=== PATIENT | female | born 1935 | race American Indian/Alaskan Native ===

== ENCOUNTER 2017-07-19 11:56 | Inpatient (IN) | payer MEDICARE, OTHER ==
[2017-07-19 12:04] VITALS: BMI 28.1
[2017-07-19] MEDS ORDERED: Sodium Chloride 0.9% 1,000 ML IV ONE (12:36)
[2017-07-19] MEDS ORDERED: Sodium Chloride 0.9% 1,000 ML ONE (12:50)
[2017-07-19 12:54] LABS: BASO # 0.1 K/uL (0.0-0.2); EOS % 0.3 % (0.0-4.0); HEMOGLOBIN 8.9 g/dL (11.0-16.0); LYMPH # 1.6 K/uL (1.0-4.3); LYMPH % 20.2 % (20.0-40.0); MEAN CELL VOLUME 88.4 fL (81.0-99.0); MEAN CORPUSCULAR HGB CONC 32.8 g/dL (33.0-37.0); MEAN PLATELET VOLUME 7.9 fL (7.2-11.7); MONO # 0.6 K/uL (0.0-0.8); MONO % 7.5 % (0.0-10.0); NEUT # 5.6 K/uL (1.8-7.0); RBC 3.06 Mil/uL (3.80-5.20); RED CELL DISTRIBUTION WIDTH 14.3 % (11.5-14.5); WHITE BLOOD COUNT 7.8 K/uL (4.8-10.8)
[2017-07-19 13:04] LABS: INR 1.2
[2017-07-19 13:08] LABS: ALBUMIN 3.3 g/dL (3.5-5.0); CALCIUM 9.2 mg/dl (8.6-10.4)
--- NOTE | 2017-07-19 13:37 | C.PDOC ---
History Of Present Illness 81 year old female with a history of dm and dementia [facility] department for evaluation of a left foot infection prior to a possible scheduled AKA. Patient has no other medical complaints. Time Seen by Provider: 07/19/17 12:35 Chief Complaint (Nursing): Medical Clearance History Per: Patient History/Exam Limitations: no limitations Onset/Duration Of Symptoms: Hrs Current Symptoms Are (Timing): Still Present Past Medical History Reviewed: Historical Data, Nursing Documentation, Vital Signs Vital Signs: Last Vital Signs Temp 98.7 F 07/19/17 12:03 Pulse 67 07/19/17 12:03 Resp 20 07/19/17 12:03 BP 132/53 L 07/19/17 12:03 Pulse Ox 99 07/19/17 15:56 - Medical History PMH: Dementia, Fractures (left talus) Surgical History: Pacemaker Family History: States: Unknown Family Hx - Social History Hx Alcohol Use: No Hx Substance Use: No - Immunization History Hx Tetanus Toxoid Vaccination: No Hx Influenza Vaccination: No Hx Pneumococcal Vaccination: No Review Of Systems Constitutional: Negative for: Fever, Chills Cardiovascular: Negative for: Chest Pain Respiratory: Negative for: Cough, Shortness of Breath Musculoskeletal: Positive for: Leg Pain Skin: Positive for: Other (left foot infection) Physical Exam - Physical Exam Appears: Non-toxic, No Acute Distress Skin: Warm, Dry Head: Atraumatic, Normacephalic Eye(s): bilateral: Normal Inspection Nose: Normal Neck: Normal Chest: Symmetrical, Other (left chest wall pacemaker in place) Cardiovascular: Rhythm Regular, No Murmur Respiratory: Normal Breath Sounds, No Rales, No Rhonchi, No Wheezing Gastrointestinal/Abdominal: Soft, No Tenderness Extremity: Other (left foot transmetatarsal amputation, 6cm x 2cm ulceration present on the left heel) Neurological/Psych: Normal Speech, Other (alert, awake, at baseline confused. ) ED Course And Treatment - Laboratory Results Result Diagrams: 07/19/17 12:51 07/19/17 12:51 ECG: Interpreted By Me, Viewed By Me ECG Rhythm: Sinus Rhythm (62bpm, normal), ST/T Changes (abnormality) ECG Interpretation: Abnormal Interpretation Of ECG: Normal sinus rhythm at 62 bpm, anteroseptal infarct, age undetermined. ST/T wave abnormality, conisder inferolateral ischemia. Abnormal EKG. O2 Sat by Pulse Oximetry: 99 (RA) Pulse Ox Interpretation: Normal Progress Note: Plan: BBK Type and Screen. EKG. CMP. CBC. PTT. Prothrombin Time. CXR One View. Glucose POC. NaCl IV Fluids. Urinalysis Medical Decision Making Medical Decision Making: discussed with Dr Chahal; pt scheduled for left leg aka on friday; will admit to his service and give clindamycin Disposition Discussed With Dr.: Noman Chahal Doctor Will See Patient In The: Hospital - Disposition Disposition: HOSPITALIZED Disposition Time: 13:35 Condition: GOOD - Clinical Impression Clinical Impression: Diabetic infection of left foot - PA / HIGH LIFT OPERATOR / Resident Statement MD/DO has reviewed & agrees with the documentation as recorded. - Scribe Statement The provider has reviewed the documentation as recorded by the Scribe (Collin Simental) All medical record entries made by the Scribe were at my direction and personally dictated by me. I have reviewed the chart and agree that the record accurately reflects my personal performance of the history, physical exam, medical decision making, and the department course for this patient. I have also personally directed, reviewed, and agree with the discharge instructions and disposition.
[2017-07-19 13:58] LABS: SQUAMOUS EPITHIAL 1 /hpf (0-5); URINE BACTERIA RARE (<OCC); URINE BILIRUBIN NEGATIVE (NEGATIVE); URINE BLOOD NEGATIVE (NEGATIVE); URINE CLARITY Hazy (Clear); URINE COLOR Yellow (YELLOW); URINE GLUCOSE (UA) NORMAL (Normal); URINE LEUKOCYTE ESTERASE 3+ Leu/uL (Negative); URINE PROTEIN NEGATIVE (NEGATIVE); URINE UROBILINOGEN NORMAL mg/dL (0.2-1.0)
[2017-07-19] MEDS ORDERED: Clindamycin 300 MG in Sodium Chloride 0.9% 50 ML IVPB STA (14:35)
[2017-07-19] MEDS ORDERED: Home Med 1 UNIT (Acetaminophen [Tylenol] 650 MG) PO PRN (16:27)
--- NOTE | 2017-07-19 17:39 | CP.PCM.CON ---
History of Present Illness - History of Present Illness History of Present Illness: Surgery Consult: Dr. Núñez Pt is an 81F with PMHx significant for DM, HTN, HLD, arrhythmia & dementia who presents to with Left foot non healing wound. Pt is scheduled for AKA on Friday, however due to her extensive medical hx her primary wanted her optimized for OR. Currently, pt is resting comfortably in her bed and denies any complaints. She denies pain in her foot, denies N/V, F/C, chest pain or SOB. PMHx: DM, HTN, HLD, arrhythmia & dementia PSHx: Left foot TMA, pacemaker SocialHx: denies smoking/EtOH ALL: Penicillins Review of Systems - Review of Systems All systems: reviewed and no additional remarkable complaints except (as per HPI ) Past Patient History - Past Social History Smoking Status: Never Smoked Drugs: Denies - CARDIAC Hx Hypertension: Yes Hx Pacemaker: Yes - NEUROLOGICAL Hx Dementia: Yes - ENDOCRINE/METABOLIC Hx Endocrine Disorders: Yes Hx Diabetes Mellitus Type 2: Yes - MUSCULOSKELETAL/RHEUMATOLOGICAL Hx Fractures: Yes (left talus) - PSYCHIATRIC Hx Substance Use: No - SURGICAL HISTORY Hx Surgeries: Yes Other/Comment: Pacemaker, left TMA - ANESTHESIA Hx Anesthesia: Yes Hx Anesthesia Reactions: No Meds Allergies/Adverse Reactions: Allergies Allergy/AdvReac Type Severity Reaction Status Date / Time Penicillins Allergy Verified 07/19/17 12:03 - Medications Medications: Current Medications Acetaminophen (Tylenol 325mg Tab) 650 mg PO Q6 PRN PRN Reason: Fever >100.4 F Amlodipine Besylate (Norvasc) 10 mg PO DAILY [facility] Ascorbic Acid (Vitamin C 500 Mg Tab) 500 mg PO DAILY [facility] Donepezil HCl (Aricept) 5 mg PO HS [facility] Ferrous Gluconate (Fergon) 324 mg PO DAILY [facility] Furosemide (Lasix) 20 mg PO DAILY [facility] Heparin Sodium (Porcine) (Heparin) 5,000 units SC Q12 [facility] Home Med (Fenofibrate,Micronized [Fenofibrate]) 134 mg PO DAILY [facility] Hydralazine HCl (Apresoline) 100 mg PO Q8 [facility] Sodium Chloride (Sodium Chloride 0.9%) 1,000 mls @ 100 mls/hr IV .Q10H ONE Stop: 07/19/17 22:35 Last Admin: 07/19/17 12:54 Dose: 100 mls/hr Sodium Chloride (Sodium Chloride 0.45%) 1,000 mls @ 60 mls/hr IV .[id number] [facility] Clindamycin Phosphate 300 mg/ (Sodium Chloride) 52 mls @ 104 mls/hr IVPB Q8 [facility] PRN Reason: Protocol Insulin Human Regular (Novolin R) 0 unit SC ACHS [facility] PRN Reason: Protocol Losartan Potassium (Cozaar) 100 mg PO DAILY [facility] Memantine (Namenda) 10 mg PO DAILY [facility] Metoprolol Succinate (Toprol Xl) 50 mg PO Q12 [facility] Multivitamins (Hexavitamin) 1 tab PO DAILY [facility] Rosuvastatin Calcium (Crestor) 5 mg PO HS [facility] Physical Exam - Constitutional Appears: Well, No Acute Distress - Head Exam Head Exam: ATRAUMATIC, NORMOCEPHALIC - Eye Exam Eye Exam: Normal appearance - ENT Exam ENT Exam: Mucous Membranes Moist - Respiratory Exam Respiratory Exam: NORMAL BREATHING PATTERN - Cardiovascular Exam Cardiovascular Exam: RRR - GI/Abdominal Exam GI & Abdominal Exam: Soft. absent: Tenderness - Extremities Exam Additional comments: left foot with dressing, clean/dry/intact - Neurological Exam Neurological exam: Alert - Skin Skin Exam: Dry, Warm Results - Vital Signs Recent Vital Signs: Last Vital Signs Temp 97.5 F L 07/19/17 16:56 Pulse 64 07/19/17 16:56 Resp 18 07/19/17 16:56 BP 144/61 07/19/17 16:56 Pulse Ox 100 07/19/17 16:56 - Labs Result Diagrams: 07/19/17 12:51 07/19/17 12:51 Labs: Laboratory Results - last 24 hr 07/19/17 07/19/17 07/19/17 12:22 12:51 12:51 WBC 7.8 RBC 3.06 L Hgb 8.9 L Hct 27.1 L MCV 88.4 MCH 29.0 MCHC 32.8 L RDW 14.3 Plt Count 481 H MPV 7.9 Neut % (Auto) 71.0 Lymph % (Auto) 20.2 [place] % (Auto) 7.5 Eos % (Auto) 0.3 Baso % (Auto) 1.0 Neut # (Auto) 5.6 Lymph # (Auto) 1.6 [place] # (Auto) 0.6 Eos # (Auto) 0.0 Baso # (Auto) 0.1 PT 13.0 H INR 1.2 APTT 33 Sodium Potassium Chloride Carbon Dioxide Anion Gap BUN Creatinine Est GFR ( Amer) Est GFR (Non-Af Amer) POC Glucose (mg/dL) 250 H Random Glucose Calcium Total Bilirubin AST ALT Alkaline Phosphatase Total Protein Albumin Globulin Albumin/Globulin Ratio Urine Color Urine Clarity Urine pH Ur Specific [place] Urine Protein Urine Glucose (UA) Urine Ketones Urine Blood Urine Nitrate Urine Bilirubin Urine Urobilinogen Ur Leukocyte Esterase Urine WBC (Auto) Urine RBC (Auto) Ur Squamous Epith Cells Urine Bacteria Blood Type Antibody Screen 07/19/17 07/19/17 07/19/17 12:51 13:47 14:07 WBC RBC Hgb Hct MCV MCH MCHC RDW Plt Count MPV Neut % (Auto) Lymph % (Auto) [place] % (Auto) Eos % (Auto) Baso % (Auto) Neut # (Auto) Lymph # (Auto) [place] # (Auto) Eos # (Auto) Baso # (Auto) PT INR APTT Sodium 140 Potassium 4.7 Chloride 104 Carbon Dioxide 25 Anion Gap 15 BUN 28 H Creatinine 1.3 H Est GFR ( Amer) 47 Est GFR (Non-Af Amer) 39 POC Glucose (mg/dL) Random Glucose 219 H Calcium 9.2 Total Bilirubin 0.4 AST 42 H ALT 18 Alkaline Phosphatase 86 Total Protein 6.8 Albumin 3.3 L Globulin 3.4 Albumin/Globulin Ratio 1.0 Urine Color Yellow Urine Clarity Hazy Urine pH 6.0 Ur Specific [place] 1.011 Urine Protein Negative Urine Glucose (UA) Normal Urine Ketones Negative Urine Blood Negative Urine Nitrate Negative Urine Bilirubin Negative Urine Urobilinogen Normal Ur Leukocyte Esterase 3+ H Urine WBC (Auto) 17 H Urine RBC (Auto) 1 Ur Squamous Epith Cells 1 Urine Bacteria Rare Blood Type A POSITIVE Antibody Screen Negative Assessment & Plan - Assessment and Plan (Free Text) Assessment: 81F with PVD & non healing left foot wound Plan: - OR for Left AKA on Friday - Pt has been seen by cardio as outpt & cleared for surgery - [facility] for OR, pre-op Sun - d/w Dr. Wilton Perez, PGY-3
[2017-07-19] MEDS: Sodium Chloride 0.45% 1,000 ML IV SCH (18:42)
--- NOTE | 2017-07-19 19:00 | RAD ---
PROCEDURE: CHEST RADIOGRAPH, 1 VIEW HISTORY: Pre Op COMPARISON: No prior similar study for comparison. FINDINGS: LUNGS: There is a thin wall round lesion in the right lower lung may represent large bulla. If clinically warranted further assessment by CT may be obtained. Otherwise the lungs are clear. PLEURA: No pneumothorax or pleural fluid seen. CARDIOVASCULAR: The heart is normal in size. Left-sided pacemaker is seen place OSSEOUS STRUCTURES: No significant abnormalities. VISUALIZED UPPER ABDOMEN: Normal. OTHER FINDINGS: None. IMPRESSION: Thin wall round lesion at the right lower lung. If indicated further assessment by CT may be obtained.
[2017-07-19] MEDS: (Novolin R) Insulin Human Regular 100 units/ml vial SC SCH (21:35)
[2017-07-19] MEDS ORDERED: SIMVASTATIN 20 MG PO SCH (22:00)
[2017-07-19] MEDS: Clindamycin 300 MG in Sodium Chloride 0.9% 50 ML IVPB SCH (22:28)
[2017-07-19] MEDS: Metoprolol Succinate 50 mg XL Tab PO SCH (22:32)
--- NOTE | 2017-07-20 02:49 | HP ---
HISTORY OF PRESENT ILLNESS: The patient is an 81-year-old female with a history of chronic ulcer of the left foot, CAD, dementia, and Alzheimer. The [facility] was a [facility] resident. The patient was transported to the hospital for preparation of a procedure, AKA, by Dr. Núñez. In fact, the patient has an ulcer for many years that was not healed, no sign of healing. The patient went to a vascular center at [place] and showed very poor vascular condition. Also, the patient had seen an outpatient vascular surgeon, Dr. Núñez, who has recommended amputation. As the patient was in the [facility], she has a cardiology clearance with Dr. Maude Kendall and followed by cardiac catheterization. The patient was cleared by the adult crossing guard for the AKA. The patient was then referred to the hospital. ALLERGIES: THE PATIENT IS ALLERGIC TO PENICILLIN. PAST MEDICAL HISTORY: History of Alzheimer, diabetes, hypertension, peripheral vascular disease. 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 SOCIAL HISTORY: The patient is not living in the [facility]. FAMILY HISTORY: None. REVIEW OF SYSTEMS: The patient cannot give much information; however, the patient is not any respiratory distress, and the patient is calm. PHYSICAL EXAMINATION: GENERAL: The patient is alert and awake, responding to simple questions. VITAL SIGNS: Blood pressure 144/61, pulse 64, respirations 18, temperature 97.5. HEENT: Head is normocephalic. Mouth: Multiple teeth loss. NECK: Supple. LUNGS: Clear. HEART: Regular rate and rhythm. S1 and S2 present and positive murmur. CHEST: Has a pacemaker at the side of the chest wall. ABDOMEN: Soft. Positive bowel sounds. GENITALIA: There is a large prolapse of the uterus known for many years. EXTREMITIES: There is an ulcer of the left foot with chronic changes, the pulse is very faint. ASSESSMENT AND PLAN: The patient is admitted with diagnosis of chronic ulcer of the left foot and advanced peripheral vascular disease and has also diabetes, hypertension, and Alzheimer's. The patient also has arrhythmia. The patient has a consult with Dr. Núñez and also a consult with Dr. Shelly Dr. . The case was discussed and reviewed with Mayte Medley, the nurse practitioner. Noman Chahal MD [facility] # [id number]
[2017-07-20] MEDS: Clindamycin 300 MG in Sodium Chloride 0.9% 50 ML IVPB SCH ×3 (05:52→22:03)
[2017-07-20] MEDS: (Novolin R) Insulin Human Regular 100 units/ml vial SC SCH ×4 (07:56→22:17)
--- NOTE | 2017-07-20 08:47 | CP.PCM.PN ---
Subjective - Date & Time of Evaluation Date of Evaluation: 07/20/17 Time of Evaluation: 08:44 - Subjective Subjective: Surgery: Dr. Núñez Pt seen and examined. No acute overnight events. States she feels ok and denies pain at this time. No fevers recorded overnight. Objective - Vital Signs/Intake and Output Vital Signs (last 24 hours): Temp Pulse Resp BP Pulse Ox 99 F 65 20 146/58 L 98 07/19/17 23:35 07/20/17 05:50 07/19/17 23:35 07/20/17 05:50 07/19/17 23:35 Intake and Output: 07/20/17 07/20/17 06:59 18:59 Intake Total 540 Balance 540 - Medications Medications: Current Medications Acetaminophen (Tylenol 325mg Tab) 650 mg PO Q6 PRN PRN Reason: Fever >100.4 F Amlodipine Besylate (Norvasc) 10 mg PO DAILY [facility] Ascorbic Acid (Vitamin C 500 Mg Tab) 500 mg PO DAILY [facility] Donepezil HCl (Aricept) 5 mg PO HS [facility] Last Admin: 07/19/17 22:28 Dose: 5 mg Ferrous Gluconate (Fergon) 324 mg PO DAILY [facility] Furosemide (Lasix) 20 mg PO DAILY [facility] Heparin Sodium (Porcine) (Heparin) 5,000 units SC Q12 [facility] Last Admin: 07/19/17 22:28 Dose: 5,000 units Home Med (Fenofibrate,Micronized [Fenofibrate]) 134 mg PO DAILY [facility] Hydralazine HCl (Apresoline) 100 mg PO Q8 [facility] Last Admin: 07/20/17 05:52 Dose: 100 mg Sodium Chloride (Sodium Chloride 0.45%) 1,000 mls @ 60 mls/hr IV .[id number] [facility] Last Admin: 07/19/17 18:42 Dose: 60 mls/hr Clindamycin Phosphate 300 mg/ (Sodium Chloride) 52 mls @ 104 mls/hr IVPB Q8 [facility] PRN Reason: Protocol Last Admin: 07/20/17 05:52 Dose: 104 mls/hr Insulin Human Regular (Novolin R) 0 unit SC ACHS [facility] PRN Reason: Protocol Last Admin: 07/20/17 07:56 Dose: Not Given Losartan Potassium (Cozaar) 100 mg PO DAILY [facility] Memantine (Namenda) 10 mg PO DAILY [facility] Metoprolol Succinate (Toprol Xl) 50 mg PO Q12 [facility] Last Admin: 07/19/17 22:32 Dose: 50 mg Multivitamins (Hexavitamin) 1 tab PO DAILY [facility] Rosuvastatin Calcium (Crestor) 5 mg PO HS [facility] Last Admin: 07/19/17 22:28 Dose: 5 mg - Labs Labs: 07/19/17 12:51 07/19/17 12:51 PT 13.0 SECONDS (9.7-12.2) H 07/19/17 12:51 INR 1.2 07/19/17 12:51 APTT 33 SECONDS (21-34) 07/19/17 12:51 - Constitutional Appears: Well, No Acute Distress - Head Exam Head Exam: ATRAUMATIC, NORMOCEPHALIC - Eye Exam Eye Exam: Normal appearance - ENT Exam ENT Exam: Mucous Membranes Moist - Respiratory Exam Respiratory Exam: NORMAL BREATHING PATTERN - Cardiovascular Exam Cardiovascular Exam: RRR - GI/Abdominal Exam GI & Abdominal Exam: Soft. absent: Tenderness - Extremities Exam Additional comments: L foot with necrotic wound, no active drainage - Neurological Exam Neurological Exam: Alert, Awake - Skin Skin Exam: Dry, Warm Assessment and Plan - Assessment and Plan (Free Text) Assessment: 81F with PVD and non healing left foot wound Plan: - plan for AKA tomorrow - keep pt NPO past midnight - d/w Dr. Wilton Perez, PGY-3
[2017-07-20] MEDS ORDERED: Home Med 1 UNIT (Fenofibrate,Micronized [Fenofibrate] 134 MG) PO SCH (10:00)
[2017-07-20] MEDS ORDERED: FERROUS GLUCONATE 324 MG PO SCH (10:00)
[2017-07-20] MEDS ORDERED: Home Med 1 UNIT (Multivit,Iron,Min 5/Folic Acid [Strovite Forte Caplet] 1 TAB) PO SCH (10:00)
[2017-07-20] MEDS ORDERED: VALSARTAN 160 MG PO SCH (10:00)
[2017-07-20] MEDS: Metoprolol Succinate 50 mg XL Tab PO SCH ×3 (10:31→22:16)
[2017-07-20] MEDS: Multiple Vitamins Tab PO SCH (10:31)
[2017-07-20 12:05] LABS: BASO # 0.1 K/uL (0.0-0.2); BASO % 0.9 % (0.0-2.0); EOS # 0.1 K/uL (0.0-0.7); EOS % 0.9 % (0.0-4.0); HEMOGLOBIN 8.4 g/dL (11.0-16.0); LYMPH # 1.9 K/uL (1.0-4.3); LYMPH % 30.5 % (20.0-40.0); MEAN CELL VOLUME 88.2 fL (81.0-99.0); MEAN CORPUSCULAR HEMOGLOBIN 29.3 pg (27.0-31.0); MEAN CORPUSCULAR HGB CONC 33.3 g/dL (33.0-37.0); MEAN PLATELET VOLUME 7.8 fL (7.2-11.7); MONO # 0.5 K/uL (0.0-0.8); MONO % 7.9 % (0.0-10.0); NEUT # 3.7 K/uL (1.8-7.0); NEUT % 59.8 % (50.0-75.0); NRBC % 0.1 % (0.0-2.0); RBC 2.86 Mil/uL (3.80-5.20); RED CELL DISTRIBUTION WIDTH 14.3 % (11.5-14.5); WHITE BLOOD COUNT 6.3 K/uL (4.8-10.8)
[2017-07-20 12:22] LABS: CALCIUM 9.2 mg/dl (8.6-10.4)
--- NOTE | 2017-07-21 01:50 | PN ---
DATE: 07/20/2017 SUBJECTIVE: Today, the patient is alert and awake, resting comfortably. Denies any chest pain. Denies any shortness of breath. PHYSICAL EXAMINATION: GENERAL: No apparent distress. VITAL SIGNS: The patient has a blood pressure of 160/69, pulse is 60, respirations 20, and temperature 98.2. HEENT: Head is normocephalic. Mouth has lot of tooth loss.. NECK: Supple. No JVD. LUNGS: Clear. HEART: Regular rate and rhythm. Positive murmur. ABDOMEN: Soft and nontender. There is prolapse of the uterus.. EXTREMITIES: There is an ulcer in the left foot and very poor peripheral vascular disease in the left leg. LABORATORY DATA: Blood test done today showed WBC 6.3, hemoglobin 8.4, hematocrit 25.2, and platelet 417. Chemistries: Sodium 144, potassium 4.2, chloride 107, bicarb 28, BUN 18, creatinine 1.1, glucose 165, and calcium 9.2. PT is 13, INR 1.2 and PTT is 33. ASSESSMENT AND PLAN: The patient is scheduled for amputation tomorrow and was cleared by barrel rifler broach for the surgery and receive one pack RBC in case of loss of blood and it seems that the patient has a low hemoglobin already. Noman Chahal MD
[2017-07-21] MEDS: Clindamycin 300 MG in Sodium Chloride 0.9% 50 ML IVPB SCH ×3 (05:37→22:32)
[2017-07-21] MEDS: Sodium Chloride 0.45% 1,000 ML IV SCH ×3 (05:40→19:45)
[2017-07-21 07:27] LABS: CALCIUM 9.1 mg/dl (8.6-10.4)
[2017-07-21 07:30] LABS: BASO % 0.5 % (0.0-2.0); EOS # 0.1 K/uL (0.0-0.7); EOS % 1.2 % (0.0-4.0); HEMOGLOBIN 8.6 g/dL (11.0-16.0); LYMPH # 2.2 K/uL (1.0-4.3); LYMPH % 39.1 % (20.0-40.0); MEAN CELL VOLUME 88.3 fL (81.0-99.0); MEAN CORPUSCULAR HEMOGLOBIN 28.8 pg (27.0-31.0); MEAN CORPUSCULAR HGB CONC 32.7 g/dL (33.0-37.0); MEAN PLATELET VOLUME 7.9 fL (7.2-11.7); MONO # 0.4 K/uL (0.0-0.8); NEUT # 2.9 K/uL (1.8-7.0); NEUT % 52.2 % (50.0-75.0); NRBC % 0.2 % (0.0-2.0); RBC 2.99 Mil/uL (3.80-5.20); RED CELL DISTRIBUTION WIDTH 14.8 % (11.5-14.5); WHITE BLOOD COUNT 5.6 K/uL (4.8-10.8)
[2017-07-21] MEDS: (Novolin R) Insulin Human Regular 100 units/ml vial SC SCH ×4 (07:31→21:45)
[2017-07-21] MEDS ORDERED: Lactated Ringer's 1,000 ML IV ONE ×2 (08:15→10:30)
--- NOTE | 2017-07-21 09:31 | PCM.SURG1 ---
Surgeon's Initial Post Op Note - Surgeon's Notes Surgeon: Wilton Machine Tender: SANDRA TrotterY2. June, RL Pre-Operative Diagnosis: Non healing left lower extremity wound Operative Findings: stent Post-Operative Diagnosis: same Operation Performed: Left above knee amputation Specimen/Specimens Removed: left lower leg above the knee Estimated Blood Loss: EBL {In ML}: 300 Date of Surgery/Procedure: 07/21/17 Time of Surgery/Procedure: 08:30
[2017-07-21] MEDS ORDERED: Lactated Ringer's 1,000 ML IV SCH (09:45)
[2017-07-21] MEDS ORDERED: Pneumococcal 23-Valent Vaccine IM ONE (10:00)
[2017-07-21] MEDS: HYDROmorphone 0.5 mg/0.5 ml ISec IVP PRN ×3 (10:24→18:14)
[2017-07-21] MEDS ORDERED: HYDROmorphone 0.5 mg/0.5 ml ISec ONE (10:44)
[2017-07-21] MEDS: Multiple Vitamins Tab PO SCH (11:47)
[2017-07-21] MEDS: Metoprolol Succinate 50 mg XL Tab PO SCH ×2 (11:49→21:56)
[2017-07-22] MEDS: HYDROmorphone 0.5 mg/0.5 ml ISec IVP PRN (02:32)
[2017-07-22] MEDS: Clindamycin 300 MG in Sodium Chloride 0.9% 50 ML IVPB SCH ×3 (06:30→21:52)
[2017-07-22 09:24] LABS: BASO % 0.3 % (0.0-2.0); LYMPH # 1.4 K/uL (1.0-4.3); MONO # 0.9 K/uL (0.0-0.8); MONO % 12.5 % (0.0-10.0); NEUT # 4.7 K/uL (1.8-7.0)
[2017-07-22 09:30] LABS: EOS % 0.1 % (0.0-4.0); LYMPH % 19.9 % (20.0-40.0); MEAN CELL VOLUME 88.4 fL (81.0-99.0); MEAN CORPUSCULAR HEMOGLOBIN 29.2 pg (27.0-31.0); NEUT % 67.2 % (50.0-75.0); RBC 2.09 Mil/uL (3.80-5.20); RED CELL DISTRIBUTION WIDTH 14.4 % (11.5-14.5); WHITE BLOOD COUNT 6.9 K/uL (4.8-10.8)
[2017-07-22 09:38] LABS: HEMOGLOBIN 6.1 g/dL (11.0-16.0)
[2017-07-22 09:54] LABS: CALCIUM 8.5 mg/dl (8.6-10.4)
[2017-07-22] MEDS: Multiple Vitamins Tab PO SCH (10:40)
[2017-07-22] MEDS: Metoprolol Succinate 50 mg XL Tab PO SCH ×2 (10:40→21:54)
[2017-07-22 13:30] LABS: MEAN CELL VOLUME 87.5 fL (81.0-99.0); MEAN CORPUSCULAR HEMOGLOBIN 29.4 pg (27.0-31.0); MEAN CORPUSCULAR HGB CONC 33.6 g/dL (33.0-37.0); MEAN PLATELET VOLUME 7.5 fL (7.2-11.7); RBC 2.09 Mil/uL (3.80-5.20); RED CELL DISTRIBUTION WIDTH 14.7 % (11.5-14.5); WHITE BLOOD COUNT 6.8 K/uL (4.8-10.8)
[2017-07-22] MEDS: (Novolin R) Insulin Human Regular 100 units/ml vial SC SCH ×4 (13:37→22:17)
[2017-07-22 13:38] LABS: HEMOGLOBIN 6.1 g/dL (11.0-16.0)
--- NOTE | 2017-07-22 13:49 | CP.PCM.PN ---
Subjective - Date & Time of Evaluation Date of Evaluation: 07/22/17 Time of Evaluation: 13:47 - Subjective Subjective: SURGERY NOTE FOR DR. MARISCAL 81F seen and examined at bedside. Patient resting comfortably in bed. No acute events. Objective - Vital Signs/Intake and Output Vital Signs (last 24 hours): Temp Pulse Resp BP Pulse Ox 98.3 F 66 18 107/55 L 95 07/22/17 07:30 07/22/17 07:30 07/22/17 07:30 07/22/17 10:38 07/22/17 07:30 Intake and Output: 07/22/17 07/22/17 06:59 18:59 Intake Total 1280 Balance 1280 - Medications Medications: Current Medications Acetaminophen (Tylenol 325mg Tab) 650 mg PO Q6 PRN PRN Reason: Fever >100.4 F Amlodipine Besylate (Norvasc) 10 mg PO DAILY [facility] Last Admin: 07/21/17 11:49 Dose: Not Given Ascorbic Acid (Vitamin C 500 Mg Tab) 500 mg PO DAILY [facility] Last Admin: 07/22/17 10:38 Dose: 500 mg Donepezil HCl (Aricept) 5 mg PO HS [facility] Last Admin: 07/21/17 21:47 Dose: 5 mg Ferrous Gluconate (Fergon) 324 mg PO DAILY [facility] Last Admin: 07/22/17 10:38 Dose: 324 mg Furosemide (Lasix) 20 mg PO DAILY [facility] Last Admin: 07/22/17 10:38 Dose: 20 mg Heparin Sodium (Porcine) (Heparin) 5,000 units SC Q12 [facility] Last Admin: 07/22/17 10:37 Dose: 5,000 units Hydralazine HCl (Apresoline) 100 mg PO Q8 [facility] Last Admin: 07/22/17 06:39 Dose: 100 mg Hydromorphone HCl (Dilaudid) 0.5 mg IVP Q3 PRN PRN Reason: Pain, severe (8-10) Last Admin: 07/22/17 02:32 Dose: 0.5 mg Sodium Chloride (Sodium Chloride 0.45%) 1,000 mls @ 60 mls/hr IV .[id number] [facility] Last Admin: 07/21/17 19:45 Dose: Not Given Clindamycin Phosphate 300 mg/ (Sodium Chloride) 52 mls @ 104 mls/hr IVPB Q8 [facility] PRN Reason: Protocol Last Admin: 07/22/17 06:30 Dose: 104 mls/hr Lactated Ringer's (Lactated Ringer's) 1,000 mls @ 0 mls/hr IV .Q0M [facility] PRN Reason: Per Protocol Insulin Human Regular (Novolin R) 0 unit SC ACHS [facility] PRN Reason: Protocol Last Admin: 07/22/17 13:38 Dose: Not Given Losartan Potassium (Cozaar) 100 mg PO DAILY [facility] Last Admin: 07/22/17 10:40 Dose: 100 mg Memantine (Namenda) 10 mg PO DAILY [facility] Last Admin: 07/22/17 10:40 Dose: 10 mg Metoprolol Succinate (Toprol Xl) 50 mg PO Q12 [facility] Last Admin: 07/22/17 10:40 Dose: 50 mg Multivitamins (Hexavitamin) 1 tab PO DAILY [facility] Last Admin: 07/22/17 10:40 Dose: 1 tab Pneumococcal Polyvalent Vaccine (Pneumovax 23 Vaccine) 0.5 ml IM .ONCE ONE Stop: 07/23/17 10:01 Rosuvastatin Calcium (Crestor) 5 mg PO HS [facility] Last Admin: 07/21/17 21:48 Dose: 5 mg - Labs Labs: 07/22/17 13:25 07/22/17 09:18 PT 13.0 SECONDS (9.7-12.2) H 07/19/17 12:51 INR 1.2 07/19/17 12:51 APTT 33 SECONDS (21-34) 07/19/17 12:51 - Constitutional Appears: Non-toxic, No Acute Distress - Respiratory Exam Respiratory Exam: Clear to Ausculation Bilateral, NORMAL BREATHING PATTERN - Cardiovascular Exam Cardiovascular Exam: REGULAR RHYTHM, +S1, +S2 - GI/Abdominal Exam GI & Abdominal Exam: Soft. absent: Distended, Firm, Guarding, Rigid, Tenderness - Extremities Exam Extremities Exam: absent: Pedal Edema, Tenderness Additional comments: dressing on site of AKA clean dry intact - Neurological Exam Neurological Exam: Alert, Awake Assessment and Plan - Assessment and Plan (Free Text) Assessment: 81F s/p left above knee amputation POD1 Plan: Pain control Monitor dressing Blood transfusion Further recs discus with Dr. Adam Trotter, PGY2
[2017-07-22] MEDS: Sodium Chloride 0.45% 1,000 ML IV SCH (14:00)
[2017-07-22] MEDS ORDERED: DiphenhydrAMINE 50 mg/ml Inj IM STA (15:53)
--- NOTE | 2017-07-22 22:52 | PN ---
DATE: 07/22/2017 SUBJECTIVE: Today, the patient is day 1 post AKA. The patient is alert and awake, but somewhat confused and denied any pain this morning and no shortness of breath. No apparent distress. PHYSICAL EXAMINATION: VITAL SIGNS: The patient has blood pressure of 127/55, pulse 60, respirations 20, temperature 97.7, earlier temperature was 100.4. HEENT: Head is normocephalic. Mouth is moist, but almost toothless. NECK: Supple. LUNGS: Clear. HEART: Regular rate and rhythm. ABDOMEN: Soft. Nontender. Positive bowel sounds. EXTREMITIES: There is left AKA, but no foul smell, no bleeding noted. LABORATORY DATA: The patient's blood work showed that the WBC is 6.8, hemoglobin 6.1, hematocrit 18.3, and platelet , that was repeated one from earlier this morning. PLAN: The case was discussed with Mayte Medley, the nurse practitioner and the patient is having blood transfusion of maybe 2 units of packed RBC and the diet will be just soft diet and we would continue the current medication. Noman Chahal MD
[2017-07-23] MEDS: Clindamycin 300 MG in Sodium Chloride 0.9% 50 ML IVPB SCH ×3 (06:27→22:20)
--- NOTE | 2017-07-23 06:45 | OP ---
PROCEDURE DATE: 07/21/2017 PREOPERATIVE DIAGNOSIS: Gangrene of the left foot. POSTOPERATIVE DIAGNOSIS: Gangrene of the left foot. PROCEDURE: Left above knee amputation. SURGEON: Garry Núñez Jr., MD ASSISTANTS: Lamonte Kirby. ANESTHESIOLOGIST: Mary Augustine MD. ANESTHESIA: General anesthesia. INDICATIONS: An 81-year-old woman, dementia, unable to walk, nonambulatory. Gangrene of the left foot. Patent stents in the leg. OPERATIVE FINDINGS: Standard left above knee amputation was carried out. PROCEDURE: The patient was given general anesthesia. Standard left above knee amputation was carried out. After completion of the anastomosis and obtaining hemostasis, we suture ligated any bleeding vessels. We then approximated the wounds with Monocryl, closed the skin with skin clips. Blood loss during the procedure was 300 mL. Operation carried out, left above knee amputation. Garry Núñez Jr., MD cc: Noman Chahal MD
[2017-07-23 07:14] LABS: BASO % 0.2 % (0.0-2.0); EOS % 0.7 % (0.0-4.0); HEMOGLOBIN 7.8 g/dL (11.0-16.0); LYMPH # 1.7 K/uL (1.0-4.3); LYMPH % 22.9 % (20.0-40.0); MEAN CELL VOLUME 86.1 fL (81.0-99.0); MEAN CORPUSCULAR HEMOGLOBIN 28.9 pg (27.0-31.0); MEAN CORPUSCULAR HGB CONC 33.5 g/dL (33.0-37.0); MEAN PLATELET VOLUME 7.9 fL (7.2-11.7); MONO # 0.8 K/uL (0.0-0.8); MONO % 10.8 % (0.0-10.0); NEUT # 4.9 K/uL (1.8-7.0); NEUT % 65.4 % (50.0-75.0); RBC 2.72 Mil/uL (3.80-5.20); RED CELL DISTRIBUTION WIDTH 15.4 % (11.5-14.5); WHITE BLOOD COUNT 7.5 K/uL (4.8-10.8)
--- NOTE | 2017-07-23 08:12 | PN ---
DATE: 07/21/2017 SUBJECTIVE: Today, patient alert and awake. Denied any pain. No shortness of breath or dizziness. PHYSICAL EXAMINATION: VITAL SIGNS: Blood pressure is 138/89, respirations 20, temperature 98. . NECK: Supple. LUNGS: Clear. HEART: Regular rate and rhythm. ABDOMEN: Soft, benign. EXTREMITIES: LABORATORY DATA: but did have a stump and the blood test that was done . Chemistry showed a sodium of 144, potassium 3.8, chloride 105, bicarb is 22, BUN 13, creatinine 1.1, and glucose 101. The plan is that treatment and . Noman Chahal MD
[2017-07-23] MEDS: (Novolin R) Insulin Human Regular 100 units/ml vial SC SCH ×4 (08:17→22:19)
[2017-07-23] MEDS ORDERED: Pneumococcal 23-Valent Vaccine IM ONE (10:00)
[2017-07-23] MEDS: Metoprolol Succinate 50 mg XL Tab PO SCH ×2 (10:29→22:21)
[2017-07-23] MEDS: Multiple Vitamins Tab PO SCH (10:30)
[2017-07-23] MEDS: Sodium Chloride 0.45% 1,000 ML IV SCH (10:32)
--- NOTE | 2017-07-23 18:01 | CP.PCM.PN ---
Subjective - Date & Time of Evaluation Date of Evaluation: 07/23/17 Time of Evaluation: 17:57 - Subjective Subjective: Vascular Surgery Progress Note for Dr. Núñez This 81F with was seen and examined this AM at bedside. No acute events overnight, pain well controlled. No new complaints at this time. Objective - Vital Signs/Intake and Output Vital Signs (last 24 hours): Temp Pulse Resp BP Pulse Ox 99 F 60 20 130/57 L 100 07/23/17 17:25 07/23/17 17:25 07/23/17 17:25 07/23/17 17:25 07/23/17 15:10 Intake and Output: 07/23/17 07/23/17 06:59 18:59 Intake Total 1585 600 Balance 1585 600 - Medications Medications: Current Medications Acetaminophen (Tylenol 325mg Tab) 650 mg PO Q6 PRN PRN Reason: Fever >100.4 F Amlodipine Besylate (Norvasc) 10 mg PO DAILY [facility] Last Admin: 07/23/17 10:29 Dose: 10 mg Ascorbic Acid (Vitamin C 500 Mg Tab) 500 mg PO DAILY [facility] Last Admin: 07/23/17 10:29 Dose: 500 mg Donepezil HCl (Aricept) 5 mg PO HS [facility] Last Admin: 07/22/17 21:52 Dose: 5 mg Ferrous Gluconate (Fergon) 324 mg PO DAILY [facility] Last Admin: 07/23/17 10:30 Dose: 324 mg Furosemide (Lasix) 20 mg PO DAILY [facility] Last Admin: 07/23/17 10:28 Dose: 20 mg Heparin Sodium (Porcine) (Heparin) 5,000 units SC Q12 [facility] Last Admin: 07/23/17 10:30 Dose: 5,000 units Hydralazine HCl (Apresoline) 100 mg PO Q8 [facility] Last Admin: 07/23/17 14:10 Dose: 100 mg Hydromorphone HCl (Dilaudid) 0.5 mg IVP Q3 PRN PRN Reason: Pain, severe (8-10) Last Admin: 07/22/17 02:32 Dose: 0.5 mg Clindamycin Phosphate 300 mg/ (Sodium Chloride) 52 mls @ 104 mls/hr IVPB Q8 [facility] PRN Reason: Protocol Last Admin: 07/23/17 14:10 Dose: 104 mls/hr Insulin Human Regular (Novolin R) 0 unit SC ACHS [facility] PRN Reason: Protocol Last Admin: 07/23/17 16:20 Dose: 3 u Losartan Potassium (Cozaar) 100 mg PO DAILY [facility] Last Admin: 07/23/17 10:28 Dose: 100 mg Memantine (Namenda) 10 mg PO DAILY [facility] Last Admin: 07/23/17 10:30 Dose: 10 mg Metoprolol Succinate (Toprol Xl) 50 mg PO Q12 [facility] Last Admin: 07/23/17 10:29 Dose: 50 mg Multivitamins (Hexavitamin) 1 tab PO DAILY [facility] Last Admin: 07/23/17 10:30 Dose: 1 tab Rosuvastatin Calcium (Crestor) 5 mg PO HS [facility] Last Admin: 07/22/17 21:53 Dose: 5 mg - Labs Labs: 07/23/17 07:00 07/22/17 09:18 PT 13.0 SECONDS (9.7-12.2) H 07/19/17 12:51 INR 1.2 07/19/17 12:51 APTT 33 SECONDS (21-34) 07/19/17 12:51 - Constitutional Appears: Non-toxic, Younger Than Stated Age - Head Exam Head Exam: NORMAL INSPECTION, NORMOCEPHALIC - Eye Exam Eye Exam: EOMI, Normal appearance - ENT Exam ENT Exam: Mucous Membranes Moist - Respiratory Exam Respiratory Exam: NORMAL BREATHING PATTERN - Cardiovascular Exam Cardiovascular Exam: +S1, +S2 - GI/Abdominal Exam GI & Abdominal Exam: Soft. absent: Firm, Guarding, Rigid, Tenderness - Extremities Exam Additional comments: dressing clean dry and intact - Neurological Exam Neurological Exam: Alert, Awake - Psychiatric Exam Psychiatric exam: Normal Affect, Normal Mood - Skin Skin Exam: Dry, Intact Assessment and Plan - Assessment and Plan (Free Text) Assessment: 81F s/p left above knee amputation POD2 Pain control Monitor dressing Further recs discus with Dr. Adam Ball PGY2
--- NOTE | 2017-07-23 22:40 | CARD ---
APPROVED REPORT EKG Measurement Heart [id number] <Conclusion> Normal sinus rhythm Anteroseptal infarct, age undetermined ST & T wave abnormality, consider inferolateral ischemia Abnormal ECG
[2017-07-24] MEDS: Clindamycin 300 MG in Sodium Chloride 0.9% 50 ML IVPB SCH (05:52)
--- NOTE | 2017-07-24 06:57 | PN ---
DATE: 07/23/2017 SUBJECTIVE: Today, the patient is status post day 2 AKA. The patient was seen earlier this morning, offered no major complaints. However, the patient is confused and screaming at times. There is no respiratory distress. PHYSICAL EXAMINATION: VITAL SIGNS: The patient has blood pressure of 135/52 , pulse 68, respirations 20, temperature is 97.5. NECK: Supple. HEENT: Mouth is moist. HEART: Regular rate and rhythm. ABDOMEN: Soft. Positive bowel sounds. EXTREMITIES: There is a left AKA. LABORATORY DATA: Labs done that showed that WBC was 7.5, hemoglobin is 7.8 after 2 units of blood received, hematocrit 23.4, and platelets 280. The patient also had a chemistry, the sugar was 161. The plan is that we are going to unit of packed RBC and . Case was discussed with RONY Gibson, the nurse practitioner from the nursing team. Noman Chahal MD
[2017-07-24 06:58] LABS: BASO % 0.4 % (0.0-2.0); EOS # 0.1 K/uL (0.0-0.7); EOS % 1.1 % (0.0-4.0); LYMPH # 1.7 K/uL (1.0-4.3); LYMPH % 22.9 % (20.0-40.0); MEAN CELL VOLUME 85.3 fL (81.0-99.0); MEAN CORPUSCULAR HEMOGLOBIN 29.2 pg (27.0-31.0); MEAN CORPUSCULAR HGB CONC 34.2 g/dL (33.0-37.0); MONO # 0.6 K/uL (0.0-0.8); MONO % 8.5 % (0.0-10.0); NEUT % 67.1 % (50.0-75.0); RBC 3.45 Mil/uL (3.80-5.20); WHITE BLOOD COUNT 7.4 K/uL (4.8-10.8)
[2017-07-24 07:00] LABS: HEMOGLOBIN 10.1 g/dL (11.0-16.0)
[2017-07-24] MEDS: (Novolin R) Insulin Human Regular 100 units/ml vial SC SCH ×2 (08:06→13:31)
--- NOTE | 2017-07-24 08:43 | CP.PCM.PN ---
Subjective - Date & Time of Evaluation Date of Evaluation: 07/24/17 Time of Evaluation: 08:41 - Subjective Subjective: SURGERY NOTE FOR DR. MARISCAL 81F seen and examined overnight. Patient denies any pain and has no complaints. Objective - Vital Signs/Intake and Output Vital Signs (last 24 hours): Temp Pulse Resp BP Pulse Ox 98.2 F 64 20 157/59 H 98 07/23/17 23:45 07/24/17 06:25 07/23/17 23:45 07/24/17 06:25 07/23/17 23:45 Intake and Output: 07/24/17 07/24/17 06:59 18:59 Intake Total 1690 Balance 1690 - Medications Medications: Current Medications Acetaminophen (Tylenol 325mg Tab) 650 mg PO Q6 PRN PRN Reason: Fever >100.4 F Amlodipine Besylate (Norvasc) 10 mg PO DAILY [facility] Last Admin: 07/23/17 10:29 Dose: 10 mg Ascorbic Acid (Vitamin C 500 Mg Tab) 500 mg PO DAILY [facility] Last Admin: 07/23/17 10:29 Dose: 500 mg Donepezil HCl (Aricept) 5 mg PO HS [facility] Last Admin: 07/23/17 22:20 Dose: 5 mg Ferrous Gluconate (Fergon) 324 mg PO DAILY [facility] Last Admin: 07/23/17 10:30 Dose: 324 mg Furosemide (Lasix) 20 mg PO DAILY [facility] Last Admin: 07/23/17 10:28 Dose: 20 mg Heparin Sodium (Porcine) (Heparin) 5,000 units SC Q12 [facility] Last Admin: 07/23/17 22:20 Dose: 5,000 units Hydralazine HCl (Apresoline) 100 mg PO Q8 [facility] Last Admin: 07/24/17 06:41 Dose: 100 mg Hydromorphone HCl (Dilaudid) 0.5 mg IVP Q3 PRN PRN Reason: Pain, severe (8-10) Last Admin: 07/22/17 02:32 Dose: 0.5 mg Clindamycin Phosphate 300 mg/ (Sodium Chloride) 52 mls @ 104 mls/hr IVPB Q8 [facility] PRN Reason: Protocol Last Admin: 07/24/17 05:52 Dose: 104 mls/hr Insulin Human Regular (Novolin R) 0 unit SC ACHS [facility] PRN Reason: Protocol Last Admin: 07/24/17 08:06 Dose: Not Given Losartan Potassium (Cozaar) 100 mg PO DAILY [facility] Last Admin: 07/23/17 10:28 Dose: 100 mg Memantine (Namenda) 10 mg PO DAILY [facility] Last Admin: 07/23/17 10:30 Dose: 10 mg Metoprolol Succinate (Toprol Xl) 50 mg PO Q12 [facility] Last Admin: 07/23/17 22:21 Dose: 50 mg Multivitamins (Hexavitamin) 1 tab PO DAILY [facility] Last Admin: 07/23/17 10:30 Dose: 1 tab Rosuvastatin Calcium (Crestor) 5 mg PO HS [facility] Last Admin: 07/23/17 22:20 Dose: 5 mg - Labs Labs: 07/24/17 06:28 07/22/17 09:18 PT 13.0 SECONDS (9.7-12.2) H 07/19/17 12:51 INR 1.2 07/19/17 12:51 APTT 33 SECONDS (21-34) 07/19/17 12:51 - Constitutional Appears: Non-toxic, No Acute Distress - Respiratory Exam Respiratory Exam: Clear to Ausculation Bilateral, NORMAL BREATHING PATTERN - Cardiovascular Exam Cardiovascular Exam: REGULAR RHYTHM, +S1, +S2 - GI/Abdominal Exam GI & Abdominal Exam: Soft. absent: Distended, Firm, Guarding, Rigid, Tenderness , Rebound - Extremities Exam Additional comments: dressing of left AKA clean dry intact Assessment and Plan - Assessment and Plan (Free Text) Assessment: 81F s/p left AKA POD#3 Plan: - Monitor dressing on amputated site - pain control Further recs discuss with Dr. Wilton Trotter, PGY2
[2017-07-24] MEDS: Multiple Vitamins Tab PO SCH (10:51)
[2017-07-24] MEDS: Metoprolol Succinate 50 mg XL Tab PO SCH (10:51)
--- NOTE | 2017-07-24 13:23 | CP.PCM.PN ---
Subjective - Date & Time of Evaluation Date of Evaluation: 07/24/17 Time of Evaluation: 11:00 - Subjective Subjective: Patient seen today , awake, alert, comfortable , denies any pain , sob a febrile s/p left AKA POD#3 hgb - improved after PRBC transfusion Objective - Vital Signs/Intake and Output Vital Signs (last 24 hours): Temp Pulse Resp BP Pulse Ox 99.1 F 123 H 18 146/60 98 07/24/17 09:01 07/24/17 09:01 07/24/17 09:01 07/24/17 10:51 07/24/17 09:01 Intake and Output: 07/24/17 07/24/17 06:59 18:59 Intake Total 1690 Balance 1690 - Medications Medications: Current Medications Acetaminophen (Tylenol 325mg Tab) 650 mg PO Q6 PRN PRN Reason: Fever >100.4 F Amlodipine Besylate (Norvasc) 10 mg PO DAILY [facility] Last Admin: 07/24/17 10:51 Dose: 10 mg Ascorbic Acid (Vitamin C 500 Mg Tab) 500 mg PO DAILY [facility] Last Admin: 07/24/17 10:51 Dose: 500 mg Donepezil HCl (Aricept) 5 mg PO HS [facility] Last Admin: 07/23/17 22:20 Dose: 5 mg Ferrous Gluconate (Fergon) 324 mg PO DAILY [facility] Last Admin: 07/24/17 10:52 Dose: 324 mg Furosemide (Lasix) 20 mg PO DAILY [facility] Last Admin: 07/24/17 10:51 Dose: 20 mg Heparin Sodium (Porcine) (Heparin) 5,000 units SC Q12 [facility] Last Admin: 07/24/17 10:51 Dose: 5,000 units Hydralazine HCl (Apresoline) 100 mg PO Q8 [facility] Last Admin: 07/24/17 06:41 Dose: 100 mg Hydromorphone HCl (Dilaudid) 0.5 mg IVP Q3 PRN PRN Reason: Pain, severe (8-10) Last Admin: 07/22/17 02:32 Dose: 0.5 mg Clindamycin Phosphate 300 mg/ (Sodium Chloride) 52 mls @ 104 mls/hr IVPB Q8 [facility] PRN Reason: Protocol Last Admin: 07/24/17 05:52 Dose: 104 mls/hr Insulin Human Regular (Novolin R) 0 unit SC ACHS [facility] PRN Reason: Protocol Last Admin: 07/24/17 08:06 Dose: Not Given Losartan Potassium (Cozaar) 100 mg PO DAILY [facility] Last Admin: 07/24/17 10:51 Dose: 100 mg Memantine (Namenda) 10 mg PO DAILY [facility] Last Admin: 07/24/17 10:51 Dose: 10 mg Metoprolol Succinate (Toprol Xl) 50 mg PO Q12 [facility] Last Admin: 07/24/17 10:51 Dose: 50 mg Multivitamins (Hexavitamin) 1 tab PO DAILY [facility] Last Admin: 07/24/17 10:51 Dose: 1 tab Rosuvastatin Calcium (Crestor) 5 mg PO HS [facility] Last Admin: 07/23/17 22:20 Dose: 5 mg - Labs Labs: 07/24/17 06:28 07/22/17 09:18 PT 13.0 SECONDS (9.7-12.2) H 07/19/17 12:51 INR 1.2 07/19/17 12:51 APTT 33 SECONDS (21-34) 07/19/17 12:51 Assessment and Plan - Assessment and Plan (Free Text) Assessment: 81 yr old female with pmhx of Dementia, admitted with foot infection s/p left AKA POD#3 post op- anemia - hgb improved with PRBC transfusion -10.1>6.1 D/W Dr. Medina , cleared fro jose from surgical standpoint and f/u with Dr. Medina office in [address] Chahal today, stable for discharge back to [facility] today and Dr. Chahal will follow the patient at [facility]
[2017-07-24 14:13] VITALS: BP 153/55; PULSE 62; RESP 20; TEMP 98.2; O2SAT 96
--- NOTE | 2017-07-25 00:21 | PN ---
DATE: 07/24/2017 SUBJECTIVE: The patient was seen earlier in the morning. The patient was alert and awake but confused; however, she remembered me as her physician. Denies any shortness of breath. No chest pain or palpitation. PHYSICAL EXAMINATION: VITAL SIGNS: The patient has blood pressure of 146/60; pulse is 64, 62 and at time 120; temperature 99.1, now at 14 hours, temperature was 98.2. HEENT: Head is normocephalic. Mouth is moist, but almost toothless. HEART: Regular rate and rhythm. LUNGS: Clear. ABDOMEN: Soft. Positive bowel sounds. GENITOURINARY: There is +4 prolapse of the uterus. EXTREMITIES: There is left AKA, no foul smell, no bleeding noted from the AKA. The right lower extremity has no tenderness. So, the patient had blood test that showed WBC is 7.4, hemoglobin is 10.1 after blood transfusion, hematocrit 29.4, and platelets 297. Chemistry, the glucose is 203. So, the plan is that the patient's contact was made by the nurse practitioner, Mayte Medley, with Dr. Núñez, the surgeon, and the patient will be discharged to the detention today. Noman Chahal MD
--- NOTE | 2017-07-25 06:52 | DS ---
HISTORY OF PRESENT ILLNESS: The patient is an 81-year-old female with history of left foot ulcer which going into the heel. The patient is a [place] [facility] resident, was brought to the hospital in order to have AKA due to the gangrene of the foot. Preadmission testing was done accordingly, and the patient had surgery done by Dr. Núñez. The patient's AKA was done. The patient had supported the surgery without any major incident, however, the patient was found to have severe anemia with a hemoglobin of 6.5. The patient received 2 to 3 packs of RBC and hemoglobin now was 10.5. The patient was evaluated due to left AKA. There was no bleeding, no foul smell noted and also patient was in her usual state of health, i.e., patient was alert and awake but confused and forgetful. The patient has history of Alzheimer, diabetes, hypertension, and peripheral vascular disease. Now, the patient is doing well and Dr. Núñez was contacted by the nurse practitioner, RONY Gibson, and argument was made to transfer this patient to the [place] [facility] came from. The patient was discharged today to the [facility] [facility]. Noman Chahal MD
--- NOTE | 2017-07-25 08:46 | PQF GENQUE ---
This form is a permanent part of the medical record To Garry Núñez MD, The patient is an 81 year old female with history of ulcer of the left foot, CAD, Dementia of Alzheimers type. Patient is a long-term resident. Patient was transpoted to the Hospital for AKA. Procedure was done. Please Clarify the ABOVE KNEE AMPUTATION -- High ( proximal) ? MID? LOW? Thank you, Clarification of your documentation is requested to better reflect the severity of illness and intensity of treatment of your patient. Indicators present [] Specify: [] [] Specify: [] [] Specify: [] [] Specify: [] Location in the medical record that reflects the above clinical findings: [] Treatment Provided: [] PHYSICIAN'S RESPONSE Based on your medical judgment of the clinical indicators outlined above please clarify the following: [] Practitioner response [] If unable to determine, please check the box, sign and date. Present On Admission (POA) Indicator: [] Present at the time of admission [] Not present at the time of admission [] Clinically Undetermined In responding to this query, please exercise your independent professional judgment. The fact that a question is asked does not imply that any particular answer is desired or expected. Thank you for your clarification on this documentation. If you have any questions please call:[ ] * Thank you, [ Karli Everett, [facility]] stitch bonding machine tender DANDY
== END 2017-07-24 14:37 | DRG 240 ==
LOC: C.ER 11:56 → C.9E 14:37 → C.6T 16:29
PROVIDERS: ADMIT Specialist; ATTEND Specialist
PROC: 0Y6D0Z2 Detachment at Left Upper Leg, Mid, Open Approach (ICD-10-PCS; 2017-07-21)
PROC: 30233N1 Transfusion of Nonautologous Red Blood Cells into Peripheral Vein, Percutaneous Approach (ICD-10-PCS; principal; 2017-07-23)
DX: E11.52 Type 2 diabetes mellitus with diabetic peripheral angiopathy with gangrene (principal); I96 Gangrene, not elsewhere classified; E11.621 Type 2 diabetes mellitus with foot ulcer; L97.529 Non-pressure chronic ulcer of other part of left foot with unspecified severity; D64.9 Anemia, unspecified; E78.5 Hyperlipidemia, unspecified; F02.80 Dementia in other diseases classified elsewhere, unspecified severity, without behavioral disturbance, psychotic disturbance, mood disturbance, and anxiety; G30.9 Alzheimer's disease, unspecified; I10 Essential (primary) hypertension; I25.10 Atherosclerotic heart disease of native coronary artery without angina pectoris; Z79.4 Long term (current) use of insulin; Z95.0 Presence of cardiac pacemaker